=== PATIENT | female | born 1995 | race Caucasian/White ===

== ENCOUNTER 2020-06-01 10:14 | Outpatient (CLI) | payer OTHER ==
--- NOTE | 2020-06-01 11:02 | ULT ---
GALLBLADDER ULTRASOUND: HISTORY:Gastroesophageal reflux. H. Pylori infection. FINDINGS: The liver demonstrates homogeneous echotexture without focal mass or intrahepatic biliary ductal dila tation. No gallstones, gallbladder wall thickening or pericholecystic fluid are seen. The right kidney and pancreas are normal. The common duct [id number] in diameter. No free fluid is seen in the Wall's pouch. IMPRESSION: Normal exam.
== END 2020-06-01 10:15 | disposition home or self-care (01) ==
LOC: SCSULT 10:14
PROVIDERS: ATTEND Physician Assistant Medical
DX: A04.8 Other specified bacterial intestinal infections (principal); R10.13 Epigastric pain; K21.9 Gastro-esophageal reflux disease without esophagitis; R19.4 Change in bowel habit
CPT/HCPCS: 76705

== ENCOUNTER 2022-08-15 11:25 | Outpatient (CLI) | payer BC, OTHER | END 2022-08-15 11:26 | disposition home or self-care (01) | LOC: RAD 11:25 | PROVIDERS: ATTEND Nurse Practitioner Family | DX: M25.532 Pain in left wrist (principal) ==